=== PATIENT | male | born 1990 | race Caucasian/White ===

== ENCOUNTER 2017-04-08 13:57 | Emergency (ER) | payer OTHER ==
--- NOTE | 2017-04-08 14:53 | EDPHY ---
H & P Time Seen by Provider: 04/08/17 14:02 HPI/ROS: 26-year-old right-hand dominant male presents complaining of injury to his right hand at work yesterday states he was loosening a pressure hose and it caused him to lockstitch back maker his hand into a piece of sheet metal. He states that the time he was able to see tendon movement through a puncture wound. He presents today complaining of pain and redness at that site. Review of systems As per HPI General no fever no chills no weakness HEENT no eye pain no eye discharge. No eye redness, no sore throat Respiratory no cough, no shortness of breath Cardiac no chest pain, no peripheral edema GI no abdominal pain, no diarrhea, no constipation, no nausea, no vomiting no flank pain, no hematuria, no dysuria Musculoskeletal no myalgias, positive joint pain Heme no easy bruising, no easy bleeding Endo no polyuria, no polydipsia Skin no rashes, no pruritus Neuro no syncope, no dizziness, no headaches Psych is no suicidal ideation, no homicidal ideation Past Medical/Surgical History: Noncontributory Social History: Alcohol socially No drug use Smoking Status: Current every day smoker Physical Exam: 26-year-old male alert and oriented no acute distress nontoxic appearance, afebrile Alert and oriented in no acute distress nontoxic appearance, afebrile Atraumatic normocephalic Neck no JVD Lungs clear to auscultation, no respiratory distress Heart regular rate and rhythm Extremities no cyanosis clubbing edema Except Right hand Right hand dominant Small abrasion overlying 4th metacarpal head with circumferential erythema Tender to palpation,no rotational deformity no swelling of finger no tenderness other than at the site of the abrasion/puncture wound decrease rom at 4th mcp, able to flex, but not able to fully extend Constitutional: Initial Vital Signs Temperature (C) 36.6 C 04/08/17 14:02 Heart Rate 58 L 04/08/17 14:02 Respiratory Rate 18 04/08/17 14:02 Blood Pressure 121/61 H 04/08/17 14:02 O2 Sat (%) 98 04/08/17 14:02 O2 Delivery Mode Room Air Allergies/Adverse Reactions: No Known Allergies Allergy (Unverified 04/08/17 14:01) Home Medications: Medication Instructions Recorded Cephalexin 500 mg PO QID #40 tablet 04/08/17 Medical Decision Making ED Course/Re-evaluation: Patient seen and evaluated for injury to his right hand while at work yesterday X-ray Read as triquetral avulsion fracture Patient has no tenderness over triquetrum. exam with puncture wound over 4th metacarpal with ttp and slightly limited extension imp puncture wound right hand 4th metarcarpal head concern for possible tendon involvement plan wound cleansed , dressed deep ulnar gutter splint to immobilize 4th mcp Cephalexin 500 mg po given Will arrange follow up with hand surgery and dc with rx for cephalexin. MG I did speak with Dr. Crocker, he plans to follow the patient on Tuesday He gave me a direct phone to his assistant broker to provide to the patient. - Data Points Medications Given: Discontinued Medications Cephalexin HCl (Keflex) 500 mg PO EDNOW ONE PRN Reason: Protocol Stop: 04/08/17 15:19 Last Admin: 04/08/17 15:25 Dose: 500 mg Departure - Departure Disposition: Home, Routine, Self-Care Clinical Impression: Puncture wound of hand with tendon involvement Condition: Good Instructions: Puncture Wound (ED) Referrals: NONE *PRIMARY CARE P,. [Primary Care Provider] - As per Instructions Ayaz Crocker MD [Medical Doctor] - As per Instructions Stand Alone Forms: Work Excuse Prescriptions: Cephalexin 500 mg PO QID #40 tablet
[2017-04-08] MEDS ORDERED: CEPHALEXIN 500 MG CAP PO ONE (15:18)
[2017-04-08 15:53] VITALS: BP 118/64; PULSE 62; RESP 16; TEMP 98.2; O2SAT 96
== END 2017-04-08 15:53 | disposition home or self-care (01) ==
LOC: CED 13:57
DX: S61.431A Puncture wound without foreign body of right hand, initial encounter (principal); F17.200 Nicotine dependence, unspecified, uncomplicated; W22.8XXA Striking against or struck by other objects, initial encounter; Y92.69 Other specified industrial and construction area as the place of occurrence of the external cause; Y99.0 Civilian activity done for income or pay; Y93.89 Activity, other specified
CPT/HCPCS: 73130-PO